=== PATIENT | female | born 1970 | race African-American/Black ===

== ENCOUNTER 2017-03-15 20:30 | Emergency (ER) | payer OTHER, SELFPAY ==
[~2017-03-15] VITALS: Ht 162.6 cm; Wt 54.4 kg
[2017-03-15 21:00] VITALS: BP 155/103
[2017-03-15] MEDS ORDERED: ROBAXIN-750750 MG PO (21:21)
[2017-03-15 21:30] VITALS: BP 155/103
[2017-03-15] MEDS ORDERED: Methocarbamol 750mg tab ORAL ONE (21:30)
--- NOTE | 2017-03-15 21:51 | Emergency Room Report ---
History of Present Illness General Chief Complaint: Lower Back Pain or Injury Source: Patient Present Illness HPI 46YOF walk-in with acute 1 week on chronic 2 years lower back pain endoreses known "fracture of vertebrate" from 2 years ago Not on pain meds now Doesnt have PMD, Ortho, PT Used friend's [facility] earlier Denies lower extremity weakness, urinary complaints, incontinence, IVDU, cancer history Allergies: Coded Allergies: No Known Allergies (Unverified , 03/15/17) Patient History Past Medical History: none Past Surgical History: none Pertinent Family History: none Social History: Denies: alcohol use, drug use, smoking Last Menstrual Period: January 21, 2017 Now: No Immunizations: UTD Reviewed Nursing Documentation: PMH: Agreed, PSxH: Agreed Review of Systems All Other Systems: negative except mentioned in HPI Physical Exam Vital Signs Date Time Temp Pulse Resp B/P Pulse Ox O2 Delivery O2 Flow Rate FiO2 03/15/17 20:41 99.0 111 20 155/103 97 Room Air Sp02 EP Interpretation: reviewed, normal General Appearance: normal inspection, well appearing, no apparent distress, alert, GCS 15, non-toxic Head: atraumatic Eyes: bilateral eye EOMI, bilateral eye PERRL ENT: normal ENT inspection, hearing grossly normal, normal voice Neck: normal inspection, full range of motion, supple, no bony tend Respiratory: normal inspection, lungs clear, normal breath sounds, no respiratory distress, no retraction, no wheezing Cardiovascular #1: regular rate, rhythm, no edema Gastrointestinal: normal inspection, normal bowel sounds, non tender, soft, no guarding, no hernia Genitourinary: no CVA tenderness Musculoskeletal: other - Hyperasthesia to any palpation of lower back. No focal ttp Neurologic: alert, oriented x3, responsive, clinical team lead III-XII nml as tested, motor strength/tone normal Psychiatric: normal inspection, judgement/insight normal, mood/affect normal Skin: normal inspection, normal color, no rash Lymphatic: normal inspection Medical Decision Making Diagnostic Impression: Primary Impression: Low back pain Qualified Codes: M54.5 - Low back pain; G89.29 - Other chronic pain ER Course Chronic LBP Acute worsening Advised Robaxin, PMD followup, Ortho, PT referral Patient refused IM Toradol in ED Doubt UTI, pyelo A: low suspicion for cord compression given well appearance, paravertebral ttp, no focal neuro deficits, absence of midline ttp/masses and pain worse with movement with known exacerbating activity Last Vital Signs Date Time Temp Pulse Resp B/P Pulse Ox O2 Delivery O2 Flow Rate FiO2 03/15/17 20:41 99.0 111 20 155/103 97 Room Air Status: improved Disposition: HOME, SELF-CARE Condition: Improved Scripts Methocarbamol* (ROBAXIN-750*) 750 Mg Tablet 750 MG PO TID for 7 Days, #30 TAB 0 Refills Prov: FERNANDO CRUZ M.D. 03/15/17 Patient Instructions: Back Pain, Adult Additional Instructions: - Take robaxin up to 3x a day for low back pain - Call your insurance for primary care doctor referral and referral for physical therapy FERNANDO CRUZ M.D. Mar 15, 2017 21:51
== END 2017-03-15 21:30 | disposition home or self-care (01) ==
LOC: EMR 21:19
DX: M54.5 Low back pain (principal); G89.29 Other chronic pain
CPT/HCPCS: 99283